=== PATIENT | male | born 1995 | race Caucasian/White ===

== ENCOUNTER 2016-10-28 20:20 | Emergency (ER) | payer BC ==
[~2016-10-28] VITALS: Ht 165.1 cm; Wt 97.4 kg
[2016-10-28 20:27] VITALS: TEMP 36.9; Ht 165.1 cm; Wt 97.4 kg
[2016-10-28] MEDS ORDERED: ACET-1256 PO (20:40)
[2016-10-28 21:11] LABS: URINE APPEARANCE CLOUDY (CLEAR); URINE BILIRUBIN NEG (NEG); URINE COLOR DK YELLOW; URINE NITRITE NEG (NEG); URINE SPECIFIC GRAVITY > 1.045 (1.000-1.030); UROBILINOGEN NEG (NEG); ZZUR CULT IF INDIC CLEAN CATCH NO
[2016-10-28 21:12] LABS: MANUAL MICROSCOPIC REQUIRED? NO; REVIEW REQ? NO
--- NOTE | 2016-10-28 21:38 | DIAGNOSTIC IMAGING REPORT ---
TESTICULAR ULTRASOUND CLINICAL HISTORY: Right testicular pain COMPARISON STUDY: 07/16/2014 FINDINGS: The right testis measures 31 x 25 x 20 mm. The left testis measures 37 x 25 x 21 mm. No intratesticular masses are visualized. There is no evidence of testicular torsion. There is a 6 mm right-sided epididymal cyst. There is no evidence of epididymal hyperemia IMPRESSION: 1. No evidence of intratesticular mass 2. No evidence of testicular torsion. 3. 6 mm right-sided epididymal cyst Electronically signed by: Juan Alberto Palomino M.D. 10/28/2016 9:36 PM Dictated Date/Time: 10/28/2016 9:35 PM
[2016-10-28 22:43] VITALS: BP 127/83; PULSE 80; O2SAT 98
--- NOTE | 2016-10-29 20:45 | EMERGENCY ROOM VISIT NOTE ---
History First contact with patient: 20:44 Chief Complaint: TESTICULAR PAIN Stated Complaint: TESTICULAR PAIN, MINOR NAUSEA, MINOR SWELLING Nursing Triage Summary: pt states he has right testicular pain that began 2 days ago. denies trauma to area or drainage from penis. pt states pain is worse with palpation. denies trouble with bowel or bladder. states he had a problem like this in the past and "I think antibiotics cleared it up." pt states he is sexually active but denies risk of STD Mani EVERETT at bedside to examine pt pt alert and oriented x4. breathing WNL. History of Present Illness The patient is a 21 year old male who presents to the Emergency Room with complaints of intermittent right testicular pain for the past 2 days. The patient does not have injury or trauma to explain his symptoms. He has not had urethral drainage or discharge. No abdominal or back pain. The patient states his discomfort is most noticeable when he palpates the testicle. He states that he has had similar symptoms previously, and one time he did need antibiotics. The patient is sexually active in a mutually monogamous relationship. He denies risk of STD and does not wish further testing. He rates his discomfort a 2/10. Review of Systems More than 10 systems were reviewed and otherwise negative with the exception of history of present illness. Past Medical/Surgical History No chronic medical disease Family History No pertinent family history. Social History Smoking Status: Never Smoker Current/Historical Medications Scheduled Acetaminophen (Tylenol), 1,000 MG PO DIRECTED Allergies Coded Allergies: No Known Allergies (Unverified , 10/28/16) Physical Exam Vital Signs Date Time Temp Pulse Resp B/P Pulse Ox O2 Delivery O2 Flow Rate FiO2 10/28/16 22:43 80 18 127/83 98 10/28/16 21:51 90 18 104/71 95 Room Air 10/28/16 20:27 36.9 109 20 150/91 96 Room Air Pain Rating (0-10): 0 Physical Exam VITALS: Vitals are noted on the nurse's note and reviewed by myself. Vital signs stable. GENERAL: Well-developed, well-nourished, white male, who is in no acute distress and resting comfortably. Patient is cooperative with the examination. HEAD: Normocephalic atraumatic. HEART: Regular rate and rhythm without murmurs gallops or rubs. LUNGS: Clear to auscultation bilaterally without wheezes, rales or rhonchi. No retractions or accessory muscle use. ABDOMEN: Positive normal bowel sounds x 4. Soft, nontender, without masses or organomegaly. No guarding or rebound tenderness. No CVA tenderness : Normal-appearing external male genitalia. No urethral drainage or discharge. No obvious lesions or ulcerations. No obvious testicular tenderness or mass appreciated. Medical Decision & Procedures ER Provider Diagnostic Interpretation: TESTICULAR ULTRASOUND CLINICAL HISTORY: Right testicular pain COMPARISON STUDY: 07/16/2014 FINDINGS: The right testis measures 31 x 25 x 20 mm. The left testis measures 37 x 25 x 21 mm. No intratesticular masses are visualized. There is no evidence of testicular torsion. There is a 6 mm right-sided epididymal cyst. There is no evidence of epididymal hyperemia IMPRESSION: 1. No evidence of intratesticular mass 2. No evidence of testicular torsion. 3. 6 mm right-sided epididymal cyst Laboratory Results Test 10/28/16 20:52 Urine Color DK YELLOW Urine Appearance CLOUDY (CLEAR) Urine pH 5.0 (4.5-7.5) Urine Specific Rhodelia > 1.045 (1.000-1.030) Urine Protein NEG (NEG) Urine Glucose (UA) NEG (NEG) Urine Ketones TRACE (NEG) Urine Occult Blood NEG (NEG) Urine Nitrite NEG (NEG) Urine Bilirubin NEG (NEG) Urine Urobilinogen NEG (NEG) Urine Leukocyte Esterase NEG (NEG) Urine WBC (Auto) 1-5 /hpf (0-5) Urine RBC (Auto) 0-4 /hpf (0-4) Urine Hyaline Casts (Auto) 1-5 /lpf (0-5) Urine Epithelial Cells (Auto) 5-10 /lpf (0-5) Urine Bacteria (Auto) NEG (NEG) ED Course Physical exam and history were performed. Nursing notes and EMR were reviewed. Patient appears to have right testicular pain for about the past 2 days. Ultrasound was performed and shows a small epididymal cyst, but no acute findings otherwise. Urine is without evidence of infection. The patient deferred STD testing. Overall the patient appears stable for discharge home. I 'm unsure of the exact etiology of his symptoms, and will refer him to urology for further care. The patient may use [id number] analgesics for his symptoms. If his discomfort worsens he was thoroughly invited to return to the ER for further evaluation. He voiced understanding of this plan and was pleased with plan of care. The chart was completed utilizing [employer] Speech Voice Recognition Software. Grammatical errors, random word insertions, pronoun errors, and incomplete sentences are an occasional consequence of this system due to software limitations, ambient noise, and hardware issues. Any formal questions or concerns about the content, text, or information contained within the body of this dictation should be directly addressed to the provider for clarification. . Medical Decision Differential diagnosis: Etiologies such as torsion, mass, infection, hernia, hydrocele, epididymitis, trauma, intra-abdominal process, as well as others were entertained. Impression Primary Impression: Testicle pain Departure Information Dispostion Home / Self-Care Condition GOOD Referrals Yazan Carballo M.D. Forms HOME CARE DOCUMENTATION FORM, IMPORTANT VISIT INFORMATION Patient Instructions My [facility] Additional Instructions You were seen and evaluated today on an emergency basis only. This is not a substitute for, or an effort to provide, complete comprehensive medical care. It is not possible to recognize and treat all injuries or illnesses in a single emergency department visit. For this reason it is recommended that you followup with Urology, Dr. Carballo' s office, next week with ongoing or persistent symptoms. Call the office in the morning and let them know you were seen in the emergency department to help facilitate care. For baseline pain relief you may alternate ibuprofen and acetaminophen every 4 hours for pain control. Take 600 mg ibuprofen (Advil) and then 4 hours later take 1000 mg acetaminophen (Tylenol). Do not take more than 3000 mg acetaminophen in a single day. You are welcome to return to the emergency department anytime with new, worsening, or concerning symptoms.
== END 2016-10-28 22:44 | disposition home or self-care (01) ==
LOC: C.EDB 20:22 → C.EDC 22:44
DX: N50.811 Right testicular pain (principal)